=== PATIENT | male | born 1990 | race African-American/Black ===

== ENCOUNTER 2017-05-08 22:37 | Emergency (ER) | payer OTHER | END 2017-05-08 23:15 | disposition other institution (70) | LOC: ED 22:37 | DX: Z02.89 Encounter for other administrative examinations (principal) ==

== ENCOUNTER 2017-05-08 22:37 | Emergency (ER) | payer SELFPAY ==
[~2017-05-08] VITALS: Ht 182.9 cm; Wt 83.9 kg
[2017-05-08 23:15] VITALS: BP 147/104
== END 2017-05-08 23:15 | disposition other institution (70) ==
LOC: ED 22:37
DX: S21.231A Puncture wound without foreign body of right back wall of thorax without penetration into thoracic cavity, initial encounter (principal); Y35.811A Legal intervention involving manhandling, law enforcement official injured, initial encounter; Y93.89 Activity, other specified; Y92.89 Other specified places as the place of occurrence of the external cause; Y99.8 Other external cause status
CPT/HCPCS: 90715; Q0092

== ENCOUNTER 2020-09-25 11:01 | Emergency (ER) | payer OTHER ==
[~2020-09-25] VITALS: Ht 185.4 cm; Wt 81.6 kg
[2020-09-25 11:52] VITALS: BP 110/68
[2020-09-25 12:49] LABS: microscopic required? NO
[2020-09-25 13:27] LABS: UA SPECIFIC GRAVITY >=1.030 (1.005-1.035); urine erythrocyte NEGATIVE (NEGATIVE)
[2020-09-25 14:18] LABS: AMPHETAMINE QUAL UR POSITIVE (See below)
== END 2020-09-25 15:00 | disposition home or self-care (01) ==
LOC: ED 11:01
PROVIDERS: Emergency Medicine
DX: F15.10 Other stimulant abuse, uncomplicated (principal)

== ENCOUNTER 2020-09-26 18:00 | Emergency (ER) | payer OTHER | END 2020-09-26 20:26 | disposition other institution (70) | LOC: ED 18:00 | DX: Z02.89 Encounter for other administrative examinations (principal) ==

== ENCOUNTER 2020-09-26 18:00 | Emergency (ER) | payer OTHER ==
[~2020-09-26] VITALS: Ht 185.4 cm; Wt 81.6 kg
[2020-09-26 18:03] VITALS: Ht 185.4 cm; Wt 81.6 kg
== END 2020-09-26 20:26 | disposition other institution (70) ==
LOC: ED 18:00
DX: Z02.89 Encounter for other administrative examinations (principal)
CPT/HCPCS: 82962